=== PATIENT | female | born 1935 | race American Indian/Alaskan Native ===

== ENCOUNTER 2020-12-25 15:49 | Emergency (ER) | payer MEDICARE, MEDICAID ==
[2020-12-25 16:10] VITALS: BP 157/79; PULSE 79
--- NOTE | 2020-12-25 16:12 | CT ---
EXAMINATION: Head wo Cont SEX: Female AGE: 85 years CLINICAL HISTORY: 85-year-old female with history of "chronic microvascular ischemic white matter disease" (MRI September 2011) and now right facial droop. Scan technique: Volume acquisition of data emergency unenhanced CT scan of the head and brain obtained with the patient lying supine on the Siemens multi slice scanner [place], [place]. All data archived in the PACS system for storage, reformatting axial/sagittal/coronal planes and study edentulous patient. Interpretation: Abnormal. 1. Multiple areas of decreased attenuation scattered throughout both cerebral hemispheres (left greater than right) characteristic of microvascular ischemic infarcts appear relatively increased in number since MRI comparison 2010. 2. Hyperostosis frontalis interna but otherwise uniform least thick bony calvarium. Symmetric clear pneumatization of the paranasal and mastoid sinuses i.e. no current signs of "sinusitis". 3. No skull fracture, underlying brain contusion or evidence of extracerebral/intracranial epidural or subdural hematoma. 4. No new supratentorial or posterior fossa mass lesion. Cerebellum and brainstem unremarkable. 5. Physiologic midline pineal and symmetric choroid plexus calcifications. No hydrocephalus. 6. No sign of acute intracerebral, intraventricular or subarachnoid hemorrhage. CONCLUSION: Multi-infarct ischemic disease. No sign of acute intracranial bleed. No new mass or hydrocephalus.
--- NOTE | 2020-12-25 16:13 | EDM.PDOC ---
ED HPI GENERAL MEDICAL PROBLEM - General Stated Complaint: MILD STROKE Time Seen by Provider: 12/25/20 16:08 Source of Information: Reports: Patient, Family History Limitations: Reports: No Limitations - History of Present Illness INITIAL COMMENTS - FREE TEXT/NARRATIVE: This 85 yo female patient was brought to the ED by family due to a possible stroke. The patient's son reports he was sitting with the patient talking to her when all of a sudden she could not talk, her face was drooping on the right and the patient started to drool. The patient reports she was having some difficulties seeing (could see different "bright spots"). 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 The patient reports she continues to see bright spots. The patient is alert and oriented to person, place and time. The patient denies any chest pain, shortness of breath, difficulties voiding or any additional concerns. Onset: Today Duration: Minutes:, Improving Quality: Reports: Other Severity: Mild Improves with: Reports: None Worsens with: Reports: None Context: Reports: Other Associated Symptoms: Reports: No Other Symptoms - Related Data Allergies Allergy/AdvReac Type Severity Reaction Status Date / Time No Known Allergies Allergy Verified 03/03/15 13:18 Home Meds: Home Meds Aspirin/Calcium Carbonate/Mag [Aspirin Buffered 325 mg Tab] 325 mg PO DAILY 02/28/15 [History] Celecoxib 100 mg PO DAILY 02/28/15 [History] Hydrochlorothiazide 25 mg PO DAILY 02/28/15 [History] Hydrocodone/Acetaminophen [Hydrocodon-Acetaminophen 5-325] 1 tab PO BID PRN 02/28/15 [History] Lisinopril 20 mg PO DAILY 02/28/15 [History] Menthol/Methyl Salicylate [Analgesic [place]] 1 applic TOP DAILY PRN 02/28/15 [History] Nepafenac [[place] 0.1% Ophth Soln] 1 drop EYERT ASDIRECTED 04/07/15 [History] Ofloxacin [Ocuflox 0.3% Ophth Soln] 1 drop EYERT ASDIRECTED 04/07/15 [History] prednisoLONE Acetate [Pred Forte 1% Ophth Susp] 1 drop EARRT ASDIRECTED 04/07/15 [History] ED ROS GENERAL - Review of Systems Review Of Systems: Comprehensive ROS is negative, except as noted in HPI. ED EXAM, NEURO - Physical Exam Exam: See Below Exam Limited By: No Limitations General Appearance: Alert, WD/WN, No Apparent Distress Eye Exam: Bilateral Eye: EOMI, Normal Inspection, PERRL Ears: Normal External Exam, Normal Canal, Hearing Grossly Normal, Normal TMs Nose: Normal Inspection, Normal Mucosa, No Blood Throat/Mouth: Normal Inspection, Normal Lips, Normal Teeth, Normal Gums, Normal Oropharynx, Normal Voice, No Airway Compromise Head Exam: Atraumatic, Normocephalic Neck: Normal Inspection, Supple, Non-Tender, Full Range of Motion Respiratory/Chest: No Respiratory Distress, Lungs Clear, Normal Breath Sounds, No Accessory Muscle Use, Chest Non-Tender Cardiovascular: Normal Peripheral Pulses, Regular Rate, Rhythm, No Edema, No Gallop, No JVD, No Murmur, No Rub GI/Abdominal: Normal Bowel Sounds, Soft, Non-Tender, No Organomegaly, No Distention, No Abnormal Bruit, No Mass (Female) Exam: Deferred Rectal (Female) Exam: Deferred Neurological: Alert, Normal Mood/Affect, Normal Dorsiflexion, CN II-XII Intact, Normal Plantar Flexion, Normal Gait, Normal Reflexes, No Motor/Sensory Deficits, Oriented x 3 Back Exam: Normal Inspection, Full Range of Motion, NT Extremities: Normal Inspection, Normal Range of Motion, Non-Tender, No Pedal Edema, Normal Capillary Refill Psychiatric: Normal Affect, Normal Mood Skin Exam: Warm, Dry, Intact, Normal Color, No Rash Course - Vital Signs Last Recorded V/S: Last Vital Signs Temp 36.6 C 12/25/20 16:08 Pulse 79 12/25/20 16:08 Resp 20 12/25/20 16:08 BP 157/79 H 12/25/20 16:08 Pulse Ox 99 12/25/20 16:08 - Orders/Labs/Meds Orders: Active Orders 24 hr Category Date Time Status EKG Documentation Completion [RC] STAT Care 12/25/20 15:50 Ordered Glucose [Blood Glucose Check, Bedside] [RC] ONETIME Care 12/25/20 15:52 Ordered DRUG SCREEN URINE BIORAD [URCHEM] Stat Lab 12/25/20 15:50 Ordered UA RFX SARAHY AND CULT IF INDIC [URIN] Urgent Lab 12/25/20 15:50 Ordered Labs: Laboratory Tests 12/25/20 12/25/20 12/25/20 Range/Units 15:51 16:13 16:13 WBC 8.0 (5.0-10.0) 10^3/uL RBC 4.41 (4.2-5.4) 10^6/uL Hgb 13.0 (12.0-16.0) g/dL Hct 38.8 (37.0-47.0) % MCV 88.0 (80-100) fL MCH 29.5 (27.0-34.0) pg MCHC 33.5 (33.0-35.0) g/dL Plt Count 233 (150-450) 10^3/uL Neut % (Auto) 62.4 (42.2-75.2) % Lymph % (Auto) 23.5 (20.5-50.1) % Sanders % (Auto) 8.9 H (2-8) % Eos % (Auto) 5.0 H (1.0-3.0) % Baso % (Auto) 0.2 (0.0-1.0) % PT 10.3 (9.0-12.0) SEC INR 1.0 (0.9-1.2) Sodium (136-145) mmol/L Potassium (3.5-5.1) mmol/L Chloride (98-107) mmol/L Carbon Dioxide (21-32) mmol/L Anion Gap (7-13) mEq/L BUN (7-18) mg/dL Creatinine (0.55-1.02) mg/dL Est Cr Clr Drug Dosing Estimated GFR (MDRD) BUN/Creatinine Ratio (No establ ref range) Glucose (74-99) mg/dL POC Glucose 124 H (83-110) mg/dl Calcium (8.5-10.1) mg/dL Total Bilirubin (0.2-1.0) mg/dL AST (15-37) U/L ALT (14-59) U/L Alkaline Phosphatase (46-116) U/L Troponin I (0.000-0.056) ng/mL Total Protein (6.4-8.2) g/dL Albumin (3.4-5.0) g/dL Globulin Albumin/Globulin Ratio 12/25/20 Range/Units 16:13 WBC (5.0-10.0) 10^3/uL RBC (4.2-5.4) 10^6/uL Hgb (12.0-16.0) g/dL Hct (37.0-47.0) % MCV (80-100) fL MCH (27.0-34.0) pg MCHC (33.0-35.0) g/dL Plt Count (150-450) 10^3/uL Neut % (Auto) (42.2-75.2) % Lymph % (Auto) (20.5-50.1) % Sanders % (Auto) (2-8) % Eos % (Auto) (1.0-3.0) % Baso % (Auto) (0.0-1.0) % PT (9.0-12.0) SEC INR (0.9-1.2) Sodium 141 (136-145) mmol/L Potassium 3.7 (3.5-5.1) mmol/L Chloride 104 (98-107) mmol/L Carbon Dioxide 29 (21-32) mmol/L Anion Gap 11.7 (7-13) mEq/L BUN 18 (7-18) mg/dL Creatinine 1.75 H (0.55-1.02) mg/dL Est Cr Clr Drug Dosing TNP Estimated GFR (MDRD) 28 BUN/Creatinine Ratio 10.3 (No establ ref range) Glucose 122 H (74-99) mg/dL POC Glucose (83-110) mg/dl Calcium 8.4 L (8.5-10.1) mg/dL Total Bilirubin 0.2 (0.2-1.0) mg/dL AST 15 (15-37) U/L ALT 18 (14-59) U/L Alkaline Phosphatase 127 H (46-116) U/L Troponin I < 0.017 (0.000-0.056) ng/mL Total Protein 6.9 (6.4-8.2) g/dL Albumin 3.3 L (3.4-5.0) g/dL Globulin 3.6 Albumin/Globulin Ratio 0.92 - Re-Assessments/Exams Free Text/Narrative Re-Assessment/Exam: 12/25/20 17:01 The patient and her son (Issa) were advised of the examination, lab, CT and EKG results. The patient's son reports she appears to be normal at this time with no further facial droop. Departure - Departure Time of Disposition: 17:02 Disposition: Home, Self-Care 01 Condition: Fair Clinical Impression: TIA (transient ischemic attack) - Discharge Information *PRESCRIPTION DRUG MONITORING PROGRAM REVIEWED*: Not Applicable *COPY OF PRESCRIPTION DRUG MONITORING REPORT IN PATIENT POORNIMA: Not Applicable Instructions: Transient Ischemic Attack, [id number] Forms: ED Department Discharge Care Plan Goals: The patient and her son were advised of the examination, lab, EKG and CT results during the visit. The patient reports she is feeling normal at this time. The patient was encouraged to come to the ED with any similar symptoms. If the patient has any additional symptoms or concerns, the patient should either return to the emergency department or visit her primary care facility. Sepsis Event Note (ED) - Focused Exam Vital Signs: Vital Signs Temp Pulse Resp BP Pulse Ox 12/25/20 16:08 36.6 C 79 20 157/79 H 99 - My Orders Last 24 Hours: My Active Orders 12/25/20 15:50 EKG Documentation Completion [RC] STAT DRUG SCREEN URINE BIORAD [URCHEM] Stat UA RFX SARAHY AND CULT IF INDIC [URIN] Urgent 12/25/20 15:52 Glucose [Blood Glucose Check, Bedside] [RC] ONETIME - Assessment/Plan Last 24 Hours: My Active Orders 12/25/20 15:50 EKG Documentation Completion [RC] STAT DRUG SCREEN URINE BIORAD [URCHEM] Stat UA RFX SARAHY AND CULT IF INDIC [URIN] Urgent 12/25/20 15:52 Glucose [Blood Glucose Check, Bedside] [RC] ONETIME
[2020-12-25 16:43] LABS: ANION GAP 11.7 mEq/L (7-13); CHLORIDE,CL 104 mmol/L (98-107); SODIUM,NA 141 mmol/L (136-145)
== END 2020-12-25 17:25 | disposition home or self-care (01) ==
LOC: DL.ED 15:49
DX: G45.9 Transient cerebral ischemic attack, unspecified (principal); Z79.82 Long term (current) use of aspirin; Z79.899 Other long term (current) drug therapy
CPT/HCPCS: 36415; 70450; 80053; 82962; 84484; 85025; 85610; 93005; 99284; 99284-25

== ENCOUNTER 2022-01-04 20:31 | Emergency (ER) | payer MEDICARE, MEDICAID ==
[2022-01-04 21:12] LABS: ACETAMINOPHEN 6 ug/mL (10-30 (Therapeutic)); ANION GAP 12.8 mEq/L (7-13); CHLORIDE,CL 94 mmol/L (98-107); SODIUM,NA 133 mmol/L (136-145)
[2022-01-04 21:49] LABS: METHAMPHETAMINES,URINE NEGATIVE (NEGATIVE)
[2022-01-04 21:50] LABS: AMPHETAMINES,URINE NEGATIVE (NEGATIVE); BARBITURATES,URINE NEGATIVE (NEGATIVE); BENZODIAZEPINE,URINE NEGATIVE (NEGATIVE); MDMA (ECSTASY), URINE NEGATIVE (NEGATIVE); METHADONE,URINE NEGATIVE (NEGATIVE); OPIATES,URINE POSITIVE (NEGATIVE); OXYCODONE,URINE NEGATIVE (NEGATIVE); PHENCYCLIDINE,URINE NEGATIVE (NEGATIVE); TCA,URINE NEGATIVE (NEGATIVE)
[2022-01-04 23:58] VITALS: BP 146/77; PULSE 89
== END 2022-01-04 23:17 ==
LOC: DL.ED 20:31
DX: I63.9 Cerebral infarction, unspecified (principal); I10 Essential (primary) hypertension; E11.9 Type 2 diabetes mellitus without complications; Z86.73 Personal history of transient ischemic attack (TIA), and cerebral infarction without residual deficits; Z79.82 Long term (current) use of aspirin; Z79.899 Other long term (current) drug therapy
CPT/HCPCS: 36415; 70450; 80053; 80143; 80179; 80305-QW; 80307; 81001; 81003; 82140; 82947; 83605; 83735; 84484; 85025; 87086; 87088; 87186; 93005; 93010; 99285; 99285-25

== ENCOUNTER 2022-07-18 18:11 | Emergency (ER) | payer MEDICARE, MEDICAID ==
[2022-07-18] MEDS ORDERED: Ciprofloxacin 500 MG Tab PO ONE (20:28)
[2022-08-10 14:27] LABS: ANION GAP 12.9 mEq/L (7-13); CHLORIDE,CL 99 mmol/L (98-107); ESTIMATED GFR 26 mL/min (>=60); SODIUM,NA 133 mmol/L (136-145)
== END 2022-07-18 20:40 | disposition home or self-care (01) ==
LOC: DL.ED 18:11
DX: N39.0 Urinary tract infection, site not specified (principal); R31.9 Hematuria, unspecified; Z86.73 Personal history of transient ischemic attack (TIA), and cerebral infarction without residual deficits
CPT/HCPCS: 36415; 80053; 81001; 85025; 86140; 87086; 87088; 87186; 99283

== ENCOUNTER 2023-01-12 17:56 | Emergency (ER) | payer MEDICARE, MEDICAID ==
[2023-01-12] MEDS ORDERED: Sodium Chloride 0.9% 10 ML Syringe FLUSH PRN (18:00)
[2023-01-12 18:09] VITALS: BP 156/70; PULSE 87
[2023-01-12 18:51] LABS: AMPHETAMINES,URINE NEGATIVE (NEGATIVE); BARBITURATES,URINE NEGATIVE (NEGATIVE); BENZODIAZEPINE,URINE NEGATIVE (NEGATIVE); MDMA (ECSTASY), URINE NEGATIVE (NEGATIVE); METHADONE,URINE NEGATIVE (NEGATIVE); METHAMPHETAMINES,URINE NEGATIVE (NEGATIVE); OPIATES,URINE POSITIVE (NEGATIVE); OXYCODONE,URINE NEGATIVE (NEGATIVE); PHENCYCLIDINE,URINE NEGATIVE (NEGATIVE); TCA,URINE NEGATIVE (NEGATIVE)
[2023-01-12 18:54] LABS: ANION GAP 12.9 mEq/L (7-13)
== END 2023-01-12 19:32 | disposition home or self-care (01) ==
LOC: DL.ED 17:56
DX: N30.01 Acute cystitis with hematuria (principal); I10 Essential (primary) hypertension; J44.9 Chronic obstructive pulmonary disease, unspecified; E11.9 Type 2 diabetes mellitus without complications; Z86.73 Personal history of transient ischemic attack (TIA), and cerebral infarction without residual deficits; Z79.82 Long term (current) use of aspirin; Z72.0 Tobacco use; Z79.899 Other long term (current) drug therapy
CPT/HCPCS: 36415; 71045; 80053; 80305-QW; 81001; 82150; 83605; 83690; 83735; 83880; 84484; 85025; 85610; 86140; 87086; 87088; 87186; 93005; 93010; 99284; 99285; J3490

== ENCOUNTER 2023-01-16 02:37 | Emergency (ER) | payer MEDICARE, MEDICAID ==
[~2023-01-16 02:37] MED LIST: Ondansetron 4 MG/2 ML SDV IVPUSH ONE; Pantoprazole 40 MG Vial IVPUSH ONE
[2023-01-16 02:47] LABS: ANION GAP 15.6 mEq/L (7-13); CHLORIDE,CL 98 mmol/L (98-107); SODIUM,NA 134 mmol/L (136-145)
[2023-01-16 02:53] LABS: ESTIMATED GFR 23 mL/min (>=60)
[2023-01-16] MEDS ORDERED: Sodium Chloride 0.9% 1,000 ML IV ONE (02:54)
[2023-01-16 03:02] VITALS: BP 91/60; PULSE 92
== END 2023-01-16 03:31 ==
LOC: DL.ED 02:37
DX: K92.2 Gastrointestinal hemorrhage, unspecified (principal); E11.9 Type 2 diabetes mellitus without complications; I10 Essential (primary) hypertension; Z79.82 Long term (current) use of aspirin; Z86.73 Personal history of transient ischemic attack (TIA), and cerebral infarction without residual deficits; Z79.899 Other long term (current) drug therapy
CPT/HCPCS: 36415; 80053; 82271; 85025; 85610; 96361; 96374; 96375; 99285; C9113; J2405; J7030

== ENCOUNTER 2023-02-02 09:35 | Emergency (ER) | payer MEDICARE, MEDICAID ==
[2023-02-02 09:47] VITALS: BP 117/63; PULSE 100
[2023-02-02] MEDS ORDERED: Sodium Chloride 0.9% 10 ML Syringe FLUSH PRN (09:54)
[2023-02-02 10:41] LABS: ALBUMIN 2.2 g/dL (3.4-5.0); ANION GAP 11.4 mEq/L (7-13); BILIRUBIN TOTAL 0.6 mg/dL (0.2-1.0); BUN/CREATININE RATIO 8.4 (No establ ref range); C-REACTIVE PROTEIN 1.9 mg/dL (0.0-0.9); CREATININE 1.19 mg/dL (0.55-1.02); EST CRCL DRUG DOSING (CG) 25.13 mL/min; INR 1.2 (0.9-1.2); POTASSIUM,K 3.4 mmol/L (3.5-5.1); PROTHROMBIN TIME 12.1 SEC (9.0-12.0); PTT,PARTIAL THROMBOPLSTIN TIME 28.3 SEC (22.0-34.0)
[2023-02-02 10:42] LABS: A/G RATIO 0.79; BASOPHILS PERCENT AUTO 0.1 % (0.0-1.0); EOSINOPHILS PERCENT AUTO 0.7 % (1.0-3.0); HEMATOCRIT 30.9 % (37.0-47.0); HEMOGLOBIN 10.2 g/dL (12.0-16.0); LYMPHOCYTES PERCENT AUTO 10.5 % (20.5-50.1); MEAN CORPUSCULAR HEMOGLOBIN 30.6 pg (27.0-34.0); MEAN CORPUSCULAR VOLUME 92.8 fL (80-100); MONOCYTES PERCENT AUTO 11.4 % (2-8); NEUTROPHILS PERCENT AUTO 77.3 % (42.2-75.2); PLATELET COUNT,PLT 288 10^3/uL (150-450); RED BLOOD CELL COUNT 3.33 10^6/uL (4.2-5.4)
[2023-02-02 10:46] LABS: LACTIC ACID 0.9 mmol/L (0.4-2.0)
[2023-02-02 10:53] LABS: APPEARANCE,URINE CLEAR (CLEAR); BILIRUBIN,URINE NEGATIVE (NEGATIVE); COLOR,URINE YELLOW (YELLOW); GLUCOSE,URINE NEGATIVE (NEGATIVE); KETONES,URINE TRACE (NEGATIVE); LEUKOCYTE ESTERASE,URINE NEGATIVE (NEGATIVE); NITRITE,URINE NEGATIVE (NEGATIVE); OCCULT BLOOD,URINE NEGATIVE (NEGATIVE); PH,URINE 6.5 (5.0-9.0); PROTEIN,URINE TRACE (NEGATIVE); UROBILINOGEN,URINE 0.2 mg/dL (0.2-1.0)
[2023-02-02 11:18] LABS: EPITHELIAL CELLS,URINE OCCASIONAL /HPF (NOT SEEN); WBC,URINE 0-5 /HPF (0-5/HPF)
[2023-02-02 11:19] LABS: AMORPHOUS SEDIMENT,URINE FEW /HPF (NOT SEEN); BACTERIA,URINE OCCASIONAL /HPF (0-FEW/HPF); GRANULAR CASTS,URINE FEW; HYALINE CASTS,URINE FEW
== END 2023-02-02 12:30 ==
LOC: DL.ED 09:35
DX: K92.2 Gastrointestinal hemorrhage, unspecified (principal); L29.3 Anogenital pruritus, unspecified; I10 Essential (primary) hypertension; E11.9 Type 2 diabetes mellitus without complications; Z79.82 Long term (current) use of aspirin; Z79.899 Other long term (current) drug therapy
CPT/HCPCS: 36415; 74176; 80053; 81001; 82272; 83605; 85025; 85610; 85730; 86140; 99284; 99285; J3490

== ENCOUNTER 2023-02-21 17:01 | Emergency (ER) | payer MEDICARE, MEDICAID ==
[2023-02-21 18:18] LABS: BASOPHILS PERCENT AUTO 0.5 % (0.0-1.0); EOSINOPHILS PERCENT AUTO 0.8 % (1.0-3.0); HEMATOCRIT 31.4 % (37.0-47.0); HEMOGLOBIN 10.1 g/dL (12.0-16.0); LYMPHOCYTES PERCENT AUTO 22.6 % (20.5-50.1); MEAN CORPUSCULAR HEMOGLOBIN 30.6 pg (27.0-34.0); MEAN CORPUSCULAR HGB CONC 32.2 g/dL (33.0-35.0); MEAN CORPUSCULAR VOLUME 95.2 fL (80-100); NEUTROPHILS PERCENT AUTO 65.1 % (42.2-75.2); PLATELET COUNT,PLT 232 10^3/uL (150-450); WHITE BLOOD CELL COUNT,WBC 5.9 10^3/uL (5.0-10.0)
[2023-02-21 18:36] LABS: B-TYPE NATRIURETIC PEPTIDE,BNP 148 pg/ml (0-100)
[2023-02-21 18:42] LABS: LACTIC ACID 0.6 mmol/L (0.4-2.0)
[2023-02-21 19:06] LABS: A/G RATIO 0.71; ALANINE AMINOTRANSFERASE,ALT 35 U/L (14-59); ALBUMIN 2.2 g/dL (3.4-5.0); ALKALINE PHOSPHATASE 94 U/L (46-116); AMYLASE 36 U/L (25-115); ANION GAP 8.2 mEq/L (7-13); ASPARTATE AMNIOTRANSFERASE,AST 44 U/L (15-37); BILIRUBIN TOTAL 0.6 mg/dL (0.2-1.0); BLOOD UREA NITROGEN,BUN 10 mg/dL (7-18); BUN/CREATININE RATIO 9.1 (No establ ref range); C-REACTIVE PROTEIN 0.8 mg/dL (0.0-0.9); CALCIUM 7.9 mg/dL (8.5-10.1); CARBON DIOXIDE,CO2 31 mmol/L (21-32); CHLORIDE,CL 110 mmol/L (98-107); ESTIMATED GFR 49 mL/min (>=60); ETHANOL BLOOD MEDICAL < 3 mg/dL (0); GLUCOSE RANDOM 91 mg/dL (70-99); LIPASE 138 U/L (73-393); MAGNESIUM 1.7 mg/dL (1.8-2.4); POTASSIUM,K 3.2 mmol/L (3.5-5.1); PROTEIN TOTAL,TP 5.3 g/dL (6.4-8.2); SODIUM,NA 146 mmol/L (136-145); TSH ULTRASENSITIVE 1.65 uIU/mL (0.36-3.74)
[2023-02-21] MEDS ORDERED: Sodium Chloride 0.9% 1,000 ML IV ONE (19:15)
[2023-02-21] MEDS ORDERED: Sodium Chloride 0.9% 10 ML Syringe FLUSH PRN (19:15)
[2023-02-21] MEDS ORDERED: Lactated Ringers 1,000 ML IV ONE (19:27)
[2023-02-21 19:46] LABS: BILIRUBIN,URINE NEGATIVE (NEGATIVE); COLOR,URINE YELLOW (YELLOW); GLUCOSE,URINE NEGATIVE (NEGATIVE); KETONES,URINE NEGATIVE (NEGATIVE); LEUKOCYTE ESTERASE,URINE SMALL (NEGATIVE); NITRITE,URINE NEGATIVE (NEGATIVE); OCCULT BLOOD,URINE SMALL (NEGATIVE); PROTEIN,URINE NEGATIVE (NEGATIVE); UROBILINOGEN,URINE 0.2 mg/dL (0.2-1.0)
[2023-02-21 19:48] LABS: APPEARANCE,URINE SLIGHTLY CLOUDY (CLEAR)
[2023-02-21 19:49] LABS: AMPHETAMINES,URINE NEGATIVE (NEGATIVE); BARBITURATES,URINE NEGATIVE (NEGATIVE); BENZODIAZEPINE,URINE NEGATIVE (NEGATIVE); MDMA (ECSTASY), URINE NEGATIVE (NEGATIVE); METHADONE,URINE NEGATIVE (NEGATIVE); METHAMPHETAMINES,URINE NEGATIVE (NEGATIVE); OPIATES,URINE NEGATIVE (NEGATIVE); OXYCODONE,URINE NEGATIVE (NEGATIVE); PHENCYCLIDINE,URINE NEGATIVE (NEGATIVE); TCA,URINE NEGATIVE (NEGATIVE)
[2023-02-21 19:57] LABS: BACTERIA,URINE MANY /HPF (0-FEW/HPF); EPITHELIAL CELLS,URINE FEW /HPF (NOT SEEN); WBC,URINE 30-40 /HPF (0-5/HPF)
== END 2023-02-21 20:31 | disposition other institution (70) ==
LOC: DL.ED 17:01
DX: R62.7 Adult failure to thrive (principal); E87.6 Hypokalemia; E87.1 Hypo-osmolality and hyponatremia; I10 Essential (primary) hypertension; E11.9 Type 2 diabetes mellitus without complications; E83.51 Hypocalcemia; E87.8 Other disorders of electrolyte and fluid balance, not elsewhere classified; E88.09 Other disorders of plasma-protein metabolism, not elsewhere classified; Z20.822 Contact with and (suspected) exposure to COVID-19; Z86.73 Personal history of transient ischemic attack (TIA), and cerebral infarction without residual deficits; Z79.899 Other long term (current) drug therapy
CPT/HCPCS: 36415; 80053; 80305; 80307; 81001; 82140; 82150; 83605; 83690; 83735; 83880; 84443; 84484; 85025; 86140; 87086; 96360; 99285; J7120; U0002; J3490

== ENCOUNTER 2024-04-17 14:03 | Emergency (ER) | payer MEDICARE, MEDICAID ==
[2024-04-17 14:03] LABS: BASOPHILS PERCENT AUTO 0.3 % (0.0-1.0); EOSINOPHILS PERCENT AUTO 4.9 % (1.0-3.0); HEMATOCRIT 37.2 % (37.0-47.0); HEMOGLOBIN 12.1 g/dL (12.0-16.0); LYMPHOCYTES PERCENT AUTO 32.8 % (20.5-50.1); MEAN CORPUSCULAR HEMOGLOBIN 29.1 pg (27.0-34.0); MEAN CORPUSCULAR HGB CONC 32.5 g/dL (33.0-35.0); MEAN CORPUSCULAR VOLUME 89.4 fL (80-100); MONOCYTES PERCENT AUTO 7.8 % (2-8); NEUTROPHILS PERCENT AUTO 54.2 % (42.2-75.2); PLATELET COUNT,PLT 186 10^3/uL (150-450); RED BLOOD CELL COUNT 4.16 10^6/uL (4.2-5.4); WHITE BLOOD CELL COUNT,WBC 7.2 10^3/uL (5.0-10.0)
[2024-04-17] MEDS: Iopamidol 755 Mg/ML 100 ML Bottle IVPUSH ONE (14:18)
[2024-04-17 14:21] LABS: PROTHROMBIN TIME 10.3 SEC (9.0-12.0); PTT,PARTIAL THROMBOPLSTIN TIME 25.2 SEC (22.0-34.0)
[2024-04-17 14:26] LABS: ALBUMIN 3.2 g/dL (3.4-5.0); ANION GAP 10.8 mEq/L (7-13); BILIRUBIN TOTAL 0.3 mg/dL (0.2-1.0); BUN/CREATININE RATIO 19.6 (No establ ref range); CALCIUM 8.3 mg/dL (8.5-10.1); CREATININE 1.58 mg/dL (0.55-1.02); EST CRCL DRUG DOSING (CG) 20.36 mL/min; MAGNESIUM 1.8 mg/dL (1.8-2.4); POTASSIUM,K 4.8 mmol/L (3.5-5.1); PROTEIN TOTAL,TP 6.7 g/dL (6.4-8.2)
[2024-04-17 14:28] LABS: APPEARANCE,URINE CLEAR (CLEAR); BILIRUBIN,URINE NEGATIVE (NEGATIVE); COLOR,URINE YELLOW (YELLOW); GLUCOSE,URINE NEGATIVE (NEGATIVE); KETONES,URINE NEGATIVE (NEGATIVE); LEUKOCYTE ESTERASE,URINE SMALL (NEGATIVE); NITRITE,URINE NEGATIVE (NEGATIVE); OCCULT BLOOD,URINE TRACE-INTACT (NEGATIVE); PH,URINE 7.5 (5.0-9.0); PROTEIN,URINE NEGATIVE (NEGATIVE); UROBILINOGEN,URINE 0.2 mg/dL (0.2-1.0)
[2024-04-17 14:31] LABS: A/G RATIO 0.91
[2024-04-17 14:42] LABS: BACTERIA,URINE RARE /HPF (0-FEW/HPF); EPITHELIAL CELLS,URINE FEW /HPF (NOT SEEN); RBC,URINE 0-5 /HPF (0-5); WBC,URINE 0-5 /HPF (0-5/HPF)
[2024-04-17] MEDS: Sodium Chloride 0.9% 1,000 ML IV ONE (15:15)
[2024-04-17] MEDS: Tenecteplase 50 MG Kit IVPUSH ONE ×2 (15:20→16:49)
[2024-04-17] MEDS: cefTRIAXone 1 GM Vial IVPUSH ONE (15:27)
[2024-04-17] MEDS: Acetaminophen 325 MG Tab PO ONE (16:08)
[2024-04-17] MEDS: Acetaminophen 650 MG Supp RECTAL STA (16:48)
[2024-04-17] MEDS: Acetaminophen 325 MG Tab ONE (16:48)
== END 2024-04-17 17:13 ==
LOC: DL.ED 14:03
DX: I63.9 Cerebral infarction, unspecified (principal); N17.9 Acute kidney failure, unspecified; N39.0 Urinary tract infection, site not specified; I10 Essential (primary) hypertension; E78.00 Pure hypercholesterolemia, unspecified; J44.9 Chronic obstructive pulmonary disease, unspecified; E11.9 Type 2 diabetes mellitus without complications; Z79.899 Other long term (current) drug therapy
CPT/HCPCS: 36415; 70450; 70496; 70498; 71045; 80053; 81001; 82947; 83735; 84484; 85025; 85610; 85730; 87086; 93005; 96361; 96374; 99285-25; A9270-GY; J0696; J3101; J7030; Q9967

== ENCOUNTER 2025-01-06 08:11 | Emergency (ER) | payer MEDICARE, MEDICAID ==
[2025-01-06] MEDS: Lactated Ringers 1,000 ML IV SCH (08:29)
[2025-01-06 08:44] LABS: BASOPHILS PERCENT AUTO 0.1 % (0.0-1.0); EOSINOPHILS PERCENT AUTO 2.5 % (1.0-3.0); HEMATOCRIT 38.9 % (37.0-47.0); HEMOGLOBIN 12.1 g/dL (12.0-16.0); LYMPHOCYTES PERCENT AUTO 12.3 % (20.5-50.1); MEAN CORPUSCULAR HEMOGLOBIN 29.2 pg (27.0-34.0); MEAN CORPUSCULAR HGB CONC 31.1 g/dL (33.0-35.0); MEAN CORPUSCULAR VOLUME 93.7 fL (80-100); NEUTROPHILS PERCENT AUTO 78.1 % (42.2-75.2); PLATELET COUNT,PLT 216 10^3/uL (150-450); RED BLOOD CELL COUNT 4.15 10^6/uL (4.2-5.4); WHITE BLOOD CELL COUNT,WBC 10.6 10^3/uL (5.0-10.0)
[2025-01-06 08:58] LABS: INR 0.9 (0.9-1.2); PROTHROMBIN TIME 9.9 SEC (9.0-12.0); PTT,PARTIAL THROMBOPLSTIN TIME 26.1 SEC (22.0-34.0)
[2025-01-06 09:02] LABS: ALBUMIN 2.3 g/dL (3.4-5.0); ANION GAP 13.9 mEq/L (7-13); BILIRUBIN TOTAL 0.5 mg/dL (0.2-1.0); BUN/CREATININE RATIO 16.8 (No establ ref range); CALCIUM 8.8 mg/dL (8.5-10.1); CREATININE 1.79 mg/dL (0.55-1.02); EST CRCL DRUG DOSING (CG) 19.95 mL/min; MAGNESIUM 1.9 mg/dL (1.8-2.4); POTASSIUM,K 3.9 mmol/L (3.5-5.1); PROTEIN TOTAL,TP 6.5 g/dL (6.4-8.2)
[2025-01-06 09:03] LABS: A/G RATIO 0.55
[2025-01-06 09:08] LABS: APPEARANCE,URINE CLEAR (CLEAR); BILIRUBIN,URINE NEGATIVE (NEGATIVE); COLOR,URINE YELLOW (YELLOW); GLUCOSE,URINE NEGATIVE (NEGATIVE); KETONES,URINE NEGATIVE (NEGATIVE); LEUKOCYTE ESTERASE,URINE SMALL (NEGATIVE); NITRITE,URINE NEGATIVE (NEGATIVE); OCCULT BLOOD,URINE MODERATE (NEGATIVE); PROTEIN,URINE NEGATIVE (NEGATIVE); UROBILINOGEN,URINE 0.2 mg/dL (0.2-1.0)
[2025-01-06 09:29] LABS: BACTERIA,URINE MODERATE /HPF (0-FEW/HPF); EPITHELIAL CELLS,URINE FEW /HPF (NOT SEEN); RBC,URINE 20-30 /HPF (0-5)
[2025-01-06] MEDS: Diltiazem 25 MG/5 ML SDV IVPUSH ONE ×2 (10:07→10:36)
[2025-01-06] MEDS: fentaNYL 100 MCG/2 ML SDV IVPUSH ONE ×4 (10:37→12:56)
[2025-01-06] MEDS: Iopamidol 755 Mg/ML 100 ML Bottle IVPUSH ONE (11:01)
[2025-01-06] MEDS: Digoxin 500 MCG/2 ML Amp IVPUSH ONE (11:58)
[2025-01-06] MEDS: Diltiazem 125 MG in Sodium Chloride 0.9% 100 ML IV SCH (12:28)
[2025-01-06] MEDS: Amiodarone 150 MG/100 ML 150 MG in Premix Bag 1 BAG IV ONE (13:50)
[2025-01-06] MEDS: Amiodarone 360 MG/200 ML 360 MG/200 ML BAG IV ONE (13:51)
[2025-01-06 14:01] VITALS: BP 143/82; PULSE 141
== END 2025-01-06 14:15 ==
LOC: DL.ED 08:11
DX: I48.91 Unspecified atrial fibrillation (principal); S43.014A Anterior dislocation of right humerus, initial encounter; I12.9 Hypertensive chronic kidney disease with stage 1 through stage 4 chronic kidney disease, or unspecified chronic kidney disease; N18.9 Chronic kidney disease, unspecified; J44.9 Chronic obstructive pulmonary disease, unspecified; E11.22 Type 2 diabetes mellitus with diabetic chronic kidney disease; E78.00 Pure hypercholesterolemia, unspecified; Z79.899 Other long term (current) drug therapy; Z79.01 Long term (current) use of anticoagulants; Z86.73 Personal history of transient ischemic attack (TIA), and cerebral infarction without residual deficits; X58.XXXA Exposure to other specified factors, initial encounter; Y93.89 Activity, other specified
CPT/HCPCS: 36415; 70450; 70496; 70498; 71045; 71260; 73030; 80053; 81001; 83605; 83735; 84484; 85025; 85610; 85730; 86140; 87040; 87086; 93005; 93010; 96361; 96365; 96367; 96375; 96376; 99285; J0283; J1160; J3010; J3490; J7120; Q9967